=== PATIENT | male | born 1990 | race Caucasian/White ===

== ENCOUNTER 2021-11-22 21:00 | Emergency (ER) | payer SELFPAY ==
[~2021-11-22] VITALS: Ht 181.6 cm; Wt 94.5 kg
[~2021-11-22 21:00] MED LIST: ATEN-169 PO; CLIN-26 PO; CLON-528 PO; IBUP-1986 PO; LANS30TA4 PO; OXYC-658 PO
[2021-11-22 21:03] VITALS: BP 163/124
== END 2021-11-23 02:39 | disposition left against medical advice (07) ==
LOC: ER 21:01
DX: F41.9 Anxiety disorder, unspecified (principal); Z53.21 Procedure and treatment not carried out due to patient leaving prior to being seen by health care provider

== ENCOUNTER 2022-11-10 11:07 | Emergency (ER) | payer MEDICAID ==
[~2022-11-10] VITALS: Ht 180.3 cm; Wt 113.6 kg
[2022-11-10 11:08] VITALS: TEMP 98.4
[2022-11-10 11:45] LABS: ALANINE AMINOTRANSFERASE 34 U/L (12-78); ALBUMIN 4.1 G/DL (3.4-5.0); ALBUMIN/GLOBULIN RATIO 1.1 (1.1-1.5); ALKALINE PHOSPHATASE 101 IU/L (46-116); ANION GAP 11 (8-16); ASPARTATE AMINO TRANSFERASE 23 U/L (10-37); BILIRUBIN,TOTAL 0.8 MG/DL (0.1-1.0); BLOOD UREA NITROGEN 11 MG/DL (7-18); BUN/CREATININE RATIO 11.6 (10.0-20.0); CHLORIDE 105 MMOL/L (99-107); CREATININE 0.95 MG/DL (0.60-1.10); GLUCOSE 102 MG/DL (70-104); POTASSIUM 3.5 MMOL/L (3.5-5.1); SODIUM 139 MMOL/L (135-145); TOTAL CARBON DIOXIDE 23.3 MMOL/L (24-32); TOTAL PROTEIN 7.8 G/DL (6.4-8.2); eCRCL 117 ML/MIN; eGFR > 90 ML/MIN
[2022-11-10 11:53] LABS: PRO BRAIN NATRIURETIC PEPTIDE 46 PG/ML (0-125)
[2022-11-10 11:56] LABS: BASOPHILS % (AUTO) 0.3 % (0-1); EOSINOPHILS # (AUTO) 0.1 X10'3 (0-0.9); HEMATOCRIT 48.4 % (42.0-52.0); HEMOGLOBIN 16.8 g/dl (14.0-17.9); LYMPHOCYTES # (AUTO) 1.9 X10'3 (1.1-4.8); MEAN CORPUSCULAR HEMOGLOBIN 30.2 PG (27.0-31.0); MEAN CORPUSCULAR HGB CONC 34.7 g/dL (33.0-36.5); MEAN CORPUSCULAR VOLUME 87.1 FL (78-98); MONOCYTES # (AUTO) 0.5 X10'3 (0-0.9); MONOCYTES % (AUTO) 5.4 % (2-12); NEUTROPHILS # (AUTO) 7.4 X10'3 (1.8-7.7); NEUTROPHILS % (AUTO) 74.3 % (42-75); PLATELET COUNT 275 X10'3 (140-440); RED BLOOD COUNT 5.56 X10'6 (4.70-6.10); RED CELL DISTRIBUTION WIDTH 14.1 % (11.5-14.5); WHITE BLOOD COUNT 9.9 X10'3 (4.5-11.0)
[2022-11-10 13:17] VITALS: BP 148/97; PULSE 94; RESP 16; O2SAT 97
[2022-11-10 15:04] LABS: THYROID STIMULATING HORMONE 1.21 ulU/ml (0.34-4.50)
== END 2022-11-10 15:43 | disposition home or self-care (01) ==
LOC: ER 11:07
DX: R42 Dizziness and giddiness (principal); I10 Essential (primary) hypertension; G89.29 Other chronic pain; Z88.0 Allergy status to penicillin; Z88.1 Allergy status to other antibiotic agents; Z79.2 Long term (current) use of antibiotics; Z79.899 Other long term (current) drug therapy
CPT/HCPCS: 36415; 71045; 80053; 83880; 84443; 84484; 85025; 93005; 99285

== ENCOUNTER 2022-12-28 19:26 | Emergency (ER) | payer MEDICAID ==
[~2022-12-28] VITALS: Ht 180.3 cm; Wt 109.1 kg
--- NOTE | 2022-12-28 19:57 | NUR ---
per dr bruce verbal order, collect flu, covid, ekg and 1 view cxr.
[2022-12-28] MEDS ORDERED: ondansetron/PF 4mg/2ml inj IV ONE (21:45)
[2022-12-28] MEDS ORDERED: normal saline 1000ml 1,000 ML IV ONE (21:45)
[2022-12-28] MEDS ORDERED: NAPR-56 PO (21:56)
[2022-12-28] MEDS ORDERED: ONDA4TAB12 PO (21:56)
--- NOTE | 2022-12-28 22:22 | NUR ---
Confirmed change in vitals with provider, Dallin, who believes patient has a viral illness. No further lab work ordered.
[2022-12-28] MEDS ORDERED: acetaminophen 325mg tablet PO STA (22:25)
[2022-12-28] MEDS ORDERED: acetaminophen 325mg/10.15ml oral unit dose solution PO STA (22:27)
[2022-12-28 23:12] VITALS: BP 99/56; PULSE 104; RESP 16; TEMP 99.3; O2SAT 98
== END 2022-12-28 23:14 | disposition home or self-care (01) ==
LOC: ER 19:28
DX: B34.9 Viral infection, unspecified (principal); Z20.822 Contact with and (suspected) exposure to COVID-19
CPT/HCPCS: 36415; 71045; 87502; 87503; 87811; 93005; 96361; 96374; 99285; J2405; J7030